=== PATIENT | male | born 1940 | race Caucasian/White ===

== ENCOUNTER 2016-12-01 06:08 | Outpatient (CLI) | payer MEDICARE ==
[2016-12-01 06:58] LABS: Hemoglobin A1c 7.5 % (4.0-6.0)
[2016-12-01 07:01] LABS: ALT (SGPT) 19 U/L (0-55); AST (SGOT) 21 U/L (5-34); Albumin 3.8 g/dL (3.4-4.8); Alkaline Phosphatase 80 U/L (40-150); Anion Gap 13 mmol/L (10-20); BUN (Urea Nitrogen) 24 mg/dL (8.4-25.7); Bilirubin, Total 0.9 mg/dL (0.2-1.2); Calc. Creatinine Clearance 0 mL/min (70-130); Calcium 8.7 mg/dL (7.8-10.44); Carbon Dioxide 24 mmol/L (23-31); Cardiac Risk 3.2 (Less than 4.5); Chloride 110 mmol/L (98-107); Cholesterol 152 mg/dL (< 200 Desired); Estimated GFR-MDRD 52; Globulin 3.6 g/dL (2.4-3.5); Glucose 195 mg/dL (83-110); HDL Cholesterol 48 mg/dL (>60 Neg Risk); LDL Cholesterol, Calculated 78 mg/dL; Potassium 4.9 mmol/L (3.5-5.1); Protein, Total 7.4 g/dL (5.8-8.1); Sodium 142 mmol/L (136-145); Triglycerides 130 mg/dL (Less than 150)
[2016-12-01 07:14] LABS: Blood, Urine Negative (Negative); Clarity Slightly Cloudy (Clear); Glucose, Urine (Dipstick) Negative (Negative); Leukocyte Negative (Negative); Nitrite Negative (Negative); Protein, Urine (Dipstick) 30 mg/dL (Neg-Trace); Specific Gravity, Urine 1.025 (1.005-1.030); pH, Urine 5.5 (5.0-9.0)
[2016-12-01 07:18] LABS: PSA-Asymptomatic (SCREENING) 0.13 ng/mL (0-4.0); T4 5.8 ug/dL (4.87-11.72); Thyroid Stimulating Hormone 2.9121 uIU/mL (0.35-4.94)
[2016-12-01 07:34] LABS: Bilirubin Negative (Negative)
[2016-12-01 18:04] LABS: Creatinine, Urine 194.37 mg/dL (63-166); Microalbumin Urine 4.8 mg/dL (0.5-50.0); Microalbumin/Creat Ratio 24.7 mg/g (Less than 30)
== END 2016-12-01 06:09 | disposition home or self-care (01) ==
LOC: BURLAB 06:08
PROVIDERS: ATTEND Family Medicine
DX: Z00.00 Encounter for general adult medical examination without abnormal findings (principal)
CPT/HCPCS: 36415; 80053; 80061; 81003; 82043; 83036; 84436; 84443; 84479; G0103

== ENCOUNTER 2017-03-17 06:15 | Outpatient (CLI) | payer MEDICARE ==
[2017-03-17 06:45] LABS: Bilirubin Negative (Negative); Blood, Urine Trace (Negative); Clarity Clear (Clear); Glucose, Urine (Dipstick) Negative (Negative); Leukocyte Negative (Negative); Nitrite Negative (Negative); Protein, Urine (Dipstick) Negative (Neg-Trace)
[2017-03-17 06:46] LABS: #Basophils 0.1 thou/uL (0.0-0.2); #Eosinphils 0.6 thou/uL (0.0-0.7); #Lymphocytes 1.1 thou/uL (1.20-3.40); #Monocytes 0.6 thou/uL (0.11-0.59); #Neutrophils 3.1 thou/uL (1.40-6.50); %Basophils 1.1 % (0.0-1.0); %Eosinophils 11.4 % (0.0-10.0); %Lymphocytes 20.1 % (21.0-51.0); %Monocytes 10.2 % (0.0-10.0); %Neutrophils 57.3 % (42.0-75.0); Hemoglobin 12.6 g/dL (14.0-18.0); Mean Corpuscular HGB CONC 34.3 g/dL (32.0-36.0); Mean Corpuscular Hemoglobin 33.2 pg (27.0-31.0); Mean Corpuscular Volume 96.5 fl (80.0-94.0); Mean Platelet Volume 7.5 fL (7.4-10.4); Platelet Count 136 thou/uL (130-400); Red Blood Cell (RBC) Count 3.79 mill/uL (4.70-6.10); White Blood Cell (WBC) Count 5.4 thou/uL (4.8-10.8)
[2017-03-17 07:08] LABS: Hemoglobin A1c 7.8 % (4.0-6.0)
[2017-03-17 07:10] LABS: ALT (SGPT) 18 U/L (8-55); AST (SGOT) 18 U/L (5-34); Albumin 3.6 g/dL (3.4-4.8); Alkaline Phosphatase 104 U/L (40-150); Anion Gap 14 mmol/L (10-20); BUN (Urea Nitrogen) 30 mg/dL (8.4-25.7); Bilirubin, Total 0.8 mg/dL (0.2-1.2); Calc. Creatinine Clearance 0 mL/min (70-130); Calcium 9.3 mg/dL (7.8-10.44); Carbon Dioxide 26 mmol/L (23-31); Cardiac Risk 3.7 (Less than 4.5); Chloride 105 mmol/L (98-107); Cholesterol 163 mg/dl (< 200 Desired); Estimated GFR-MDRD 43; Globulin 4.1 g/dL (2.4-3.5); Glucose 202 mg/dL (83-110); HDL Cholesterol 44 mg/dL (>60 Neg Risk); LDL Cholesterol, Calculated 93 mg/dL; Potassium 4.4 mmol/L (3.5-5.1); Protein, Total 7.7 g/dL (5.8-8.1); Sodium 141 mmol/L (136-145); Triglycerides 130 mg/dL (Less than 150)
[2017-03-17 18:41] LABS: Creatinine, Urine 121.4 mg/dL (63-166); Microalbumin Urine 3.1 mg/dL (0.5-50.0); Microalbumin/Creat Ratio 25.5 mg/g (Less than 30)
== END 2017-03-17 06:16 | disposition home or self-care (01) ==
LOC: BURLAB 06:15
PROVIDERS: ATTEND Family Medicine
CPT/HCPCS: 36415; 80053; 80061; 81003; 82043; 83036; 85025; G0103

== ENCOUNTER 2017-08-19 15:02 | Outpatient (CLI) | payer MEDICARE ==
--- NOTE | 2017-08-19 19:32 | ULT ---
THYROID ULTRASOUND 08/19/17 Ultrasonography of the thyroid gland was performed. The right lobe measures 3.8 x 1.6 x 1.1 cm and is normal in appearance. No nodules or masses are seen within it. The left lobe, however, is abnormal. Its size is 3.7 x 1.4 x 1.3 cm. It contains a 0.8 to 0.9 cm nodule in its mid portion. It is hyperechoic and its margins are not perfectly defined. I see no halo around it. No blood flow was seen within this nodule. IMPRESSION: 8 to 9 mm hyperechoic nodule of the left lobe of the thyroid gland, middle third. Statistically, hyperechoic nodules, particularly with no observable blood flow on doppler, are more l ikely benign than not. There is a small percentage of nodules in this subgroup that can be malignant. The lack of perfectly defined borders mitigates slightly towards that. Thus, this nodule is indeterm inate for malignancy though the odds are probably still a bit more likely benign than not. Followup is required. Surgical referral for consideration is strongly recommended. Code T POS: HOME
== END 2017-08-19 15:03 | disposition home or self-care (01) ==
LOC: BURULT 15:02
PROVIDERS: ATTEND Family Medicine
DX: E07.9 Disorder of thyroid, unspecified (principal); E04.2 Nontoxic multinodular goiter
CPT/HCPCS: 76536